=== PATIENT | male | born 2000 | race Caucasian/White ===

== ENCOUNTER → 2021-01-25 10:08 | Outpatient (BNVA) | payer MEDICAID, SELFPAY | PROVIDERS: Visit Provider Nurse Practitioner Family | DX: Z20.822 Contact with and (suspected) exposure to COVID-19 (principal) | CPT/HCPCS: 87635 ==

== ENCOUNTER 2021-04-04 00:30 | Emergency (ER) | payer MEDICAID, SELFPAY ==
[2021-04-04 01:17] VITALS: BP 128/83; PULSE 71; RESP 18; TEMP 36.3; O2SAT 99; BMI 30.1
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
--- NOTE | 2021-04-04 03:39 | PC.NURSE ---
Tonny bandage applied. Instructed pt on injury care at home. Verbalized understanding. Reports pain to LLE just below the knee. Mild bruising noted. Denies other injury.
[2021-04-04 03:41] VITALS: BP 125/80; PULSE 88; RESP 18; O2SAT 100
== END 2021-04-04 03:45 | disposition home or self-care (01) ==
PROVIDERS: Emergency Provider Emergency Medicine
DX: S80.02XA Contusion of left knee, initial encounter (principal); V48.0XXA Car driver injured in noncollision transport accident in nontraffic accident, initial encounter
CPT/HCPCS: 71045; 73562; 99283

== ENCOUNTER → 2021-08-22 15:34 | Outpatient (BNVA) | payer MEDICAID, SELFPAY | PROVIDERS: Visit Provider Nurse Practitioner Family | DX: Z20.822 Contact with and (suspected) exposure to COVID-19 (principal) | CPT/HCPCS: 87635 ==

== ENCOUNTER 2021-11-06 19:03 | Emergency (ER) | payer MEDICAID, SELFPAY ==
[2021-11-06 19:45] VITALS: BP 134/77; PULSE 69; RESP 16; TEMP 36.6; O2SAT 100; BMI 29.5
--- NOTE | 2021-11-06 19:54 | ED_ITS ---
HPI - Asthma General: Chief Complaint: Asthma Stated Complaint: Asthma Attack\dizzy\Cant focus\Headache Time Seen by Provider: 11/06/21 19:49 History of Present Illness: 21-year-old male patient comes in today with an episode of wheezing and shortness of breath while at work today. Patient was able to use his albuterol and did have improvement but his boss told him that he needed to be evaluated and released back to work. Patient reports that it did not seem an abnormal event for him. Patient appears well. Patient appears in no acute distress. Associated symptoms: Deny fever(s) Review of Systems Const: Denies: fever(s) Resp: Reports: dyspnea and wheezing PFS ED PFSH: Social History Smoking and tobacco status: never smoked Alcohol intake: never Physical Exam Const: COMMON NORMALS: alert HENMT: THROAT: posterior oropharynx normal Resp: COMMON NORMALS: normal respiratory effort and clear to auscultation bilaterally AUSCULTATION: clear to auscultation bilaterally Cardio: COMMON NORMALS: regular rate and regular rhythm RATE: regular rate RHYTHM: regular rhythm Extremity: COMMON NORMALS: no pedal edema Neuro: SENSORIUM/ORIENTATION: Yes alert Psych: COMMON NORMALS: cooperative Skin: COMMON NORMALS: no rashes or lesions noted GENERAL SKIN EXAM: no rashes or lesions noted Course Vital Signs: Vital signs: Vital Signs Temperature 97.8 F 11/06/21 19:45 Pulse Rate 69 11/06/21 19:45 Respiratory Rate 16 11/06/21 19:45 Blood Pressure 134/77 11/06/21 19:45 Pulse Oximetry 100 11/06/21 19:45 MDM - Asthma Medical Decision Making 21-year-old male patient comes in today for evaluation after asthma attack. On exam patient is in no distress. Lungs are clear to auscultation. Skin is warm and dry. Vital signs are normal. Differential diagnosis includes mild intermittent asthma, moderate persistent asthma, upper respiratory infection. No signs of infection was noted. Believe the patient had a asthma attack that was controlled with albuterol. Patient was recommended continue with routine care follow-up with primary care for further instructions. Discharge Plan Discharge Patient Disposition: Home Clinical Impression: Asthma Qualifiers: Asthma severity: mild Asthma persistence: intermittent Asthma complication type: unspecified Qualified Code(s): J45.20 - Mild intermittent asthma, uncomplicated Condition: Stable Prescriptions: No Action albuterol sulfate [Ventolin HFA] 90 mcg/actuation HFA aerosol inhaler 2 puff inhalation Q6H PRN (Reason: shortness of breath or wheezing) Qty: 8.5 0RF Discharge Orders: Discharge ED (Routine); Ordered 11/06/21 Ordered By: Obinna Wei Discharge Diet: Usual diet Discharge Activity: Increase activity as tolerated Patient Instructions: Asthma (ED) Activity Restrictions/Additional Instructions: I would recommend following up with your primary care about other management options regarding your asthma. If you only have 1 or 2 episodes per week for your asthma, intermittent albuterol may be the best option, however more frequent use of albuterol is not showing good control for asthma. At that time, steroid inhaler would be recommended. Follow-up with primary care in 1 week. Return to ER for worsening symptoms. 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
== END 2021-11-06 19:57 | disposition home or self-care (01) ==
PROVIDERS: Emergency Provider Nurse Practitioner Family
DX: J45.20 Mild intermittent asthma, uncomplicated (principal)
CPT/HCPCS: 99282